=== PATIENT | male | born 1995 | race Caucasian/White ===

== ENCOUNTER 2020-11-14 11:59 | Observation (INO) | payer BC ==
[2020-11-14] MEDS ORDERED: Sodium Chloride 0.9% 1000 ML 1,000 ML IV STA (12:32)
[2020-11-14] MEDS ORDERED: Zofran 4 MG/2 ML VIAL IV ONE (12:32)
[2020-11-14 12:41] LABS: Lactic Acid 2.8 (0.4-2.0); VBG CARBOXYHEMOGLOBIN 2.2 % T HGB (0.0-6.9); VBG HCO3- 11.6 meq/L (22-28); VBG HEMOGLOBIN 16.9; VBG O2 SATURATION 33.5 (95-100)
[2020-11-14 12:42] LABS: VBG pH 7.02 (7.32-7.42)
[2020-11-14] MEDS ORDERED: Zofran 4 MG/2 ML VIAL ONE ×2 (12:46→12:53)
[2020-11-14] MEDS ORDERED: Sodium Chloride 0.9% 1000 ML 1,000 ML ONE ×4 (12:46→19:31)
[2020-11-14 12:59] LABS: Hematocrit 46.8 % (42-50); Hemoglobin 16.4 gm/dl (12.5-18.0); Mean Cell Volume 86.5 fl (78-100); Mean Corpuscular Hemoglobin 30.3 pg (26-32); Mean Platelet Volume 9.2 fl (7.5-11.0); Platelet Count 373 K/mm3 (150-450); Red Blood Count 5.41 M/mm3 (4.1-5.6); Red Cell Distribution Width 12.5 % (11.5-14.0); White Blood Count 19.2 K/mm3 (4.0-10.5)
[2020-11-14 13:09] LABS: ALBUMIN 5.8 g/dL (3.5-5.0); ALKALINE PHOSPHATASE 122 U/L (38-126); ANION GAP 36.8 MEQ/L (5-15); BLOOD UREA NITROGEN 18 mg/dL (9-20); CHLORIDE 101 mmol/L (98-107); Calcium 10.2 mg/dL (8.4-10.2); Creatinine 1 1.04 mg/dL (0.66-1.25); EST GLOMERULAR FILTRATION RATE > 60.0 ML/MIN; Glucose 333 mg/dL (74-106); MAGNESIUM 2.5 mg/dL (1.6-2.3); Potassium 5.8 mmol/L (3.5-5.1); SGOT/AST 31 U/L (17-59); SGPT/ALT 26 U/L (0-50); SODIUM 141 mmol/L (137-145); Total Protein 9.5 g/dL (6.3-8.2)
[2020-11-14 13:16] LABS: Carbon Dioxide 9 mmol/L (22-30)
[2020-11-14] MEDS: HUMULIN R 100 UNIT in Sodium Chloride 0.9% 100 ML IVPB 100 ML IV SCH (13:21)
[2020-11-14 13:24] LABS: Appearance CLEAR (CLEAR); Bilirubin NEGATIVE (NEGATIVE); Blood MODERATE Ery/ul (0-5); Glucose >=500 mg/dL (NEGATIVE); Ketones MODERATE (NEGATIVE); Leukocyte Esterase NEGATIVE (NEGATIVE); Mucus SLIGHT /HPF (NEGATIVE); Nitrite NEGATIVE (NEGATIVE); Protein,Urine Dip 100 (Negative); Specific Gravity 1.022 (1.005-1.025); Urobilinogen NEGATIVE mg/dL (0-1)
--- NOTE | 2020-11-14 13:35 | XRAY ---
Indication: Vomiting. Diabetic ketoacidosis. Comparison: None 2 view abdomen nonacute and nonobstructed. Solid organs and osseous structures unremarkable. Single PA chest demonstrates normal heart, lungs, and bony thorax. Impression: Negative abdomen. Normal 1 view chest.
--- NOTE | 2020-11-14 13:52 | ERPHSYRPT ---
- History of Present Illness Time Seen by Provider: 11/14/20 12:05 Historian: patient Exam Limitations: no limitations Patient Subjective Stated Complaint: PT states "I am a type 1 diabetic and I have not been able to keep anything down for the past couple of days. I feel horrible." Triage Nursing Assessment: PT presented alert and oriented X 3, skin pwd. pt ambulates with a slow shuffling gait. PT able to speak in clear full sentences pt in no apparent respiratory distress. Physician History: 25 years old type I diabetic on insulin pump presented in the ER with sudden onset nausea and vomiting last night with multiple episodes of nonprojectile, nonbilious vomiting with no hematemesis. Patient report mild dull aching pain generalized abdomen which is more with vomiting and better in between. He does not have any abdominal pain at present. Denies any fever or chills cough or shortness of breath. Blood sugar on presentation is 300s. Patient feels weak fatigued tired and dehydrated with no energy. Timing/Duration: yesterday, sudden, worse Quality: aching Abdominal Pain Onset Location: generalized abdomen Pain Radiation: no radiation Severity of Pain-Max: mild Severity of Pain-Current: none Modifying Factors: Worsens With: vomiting Associated Symptoms: nausea, vomiting Allergies/Adverse Reactions: corn Allergy (Severe, Verified 11/14/20 15:51) swelling in throat Penicillins Allergy (Severe, Verified 11/14/20 15:51) Swelling Home Medications: Insulin Lispro [Humalog] 100 unit SQ DAILY 11/14/20 [History] PARoxetine HCL [Paroxetine HCl] 5 mg PO DAILY 11/14/20 [History] Hx Tetanus, Diphtheria Vaccination/Date Given: No Hx Influenza Vaccination/Date Given: No Hx Pneumococcal Vaccination/Date Given: No Immunizations Up to Date: Yes Travel Risk - International Travel Have you traveled outside of the country in past 3 weeks: No - Coronavirus Screening Are you exhibiting any of the following symptoms?: No Close contact with a COVID-19 positive Pt in past 14-21 Days: No - Vaccine Status Have you recieved a Covid-19 vaccination: No - Review of Systems Constitutional: Fatigue, Weakness Eyes: No Symptoms Ears, Nose, & Throat: No Symptoms Respiratory: No Symptoms Cardiac: No Symptoms Abdominal/Gastrointestinal: Abdominal Pain, Nausea, Vomiting, No Diarrhea Genitourinary Symptoms: No Symptoms Musculoskeletal: No Symptoms Skin: No Symptoms Neurological: No Symptoms Psychological: No Symptoms Endocrine: No Symptoms Hematologic/Lymphatic: No Symptoms Immunological/Allergic: No Symptoms - Past Medical History Pertinent Past Medical History: Yes Neurological History: No Pertinent History ENT History: No Pertinent History Cardiac History: No Pertinent History Respiratory History: No Pertinent History Endocrine Medical History: Diabetes Type I Musculoskeletal History: No Pertinent History GI Medical History: GERD History: No Pertinent History Psycho-Social History: Anxiety Male Reproductive Disorders: No Pertinent History - Past Surgical History Past Surgical History: No - Social History Smoking Status: Never smoker How long have you smoked: years Exposure to second hand smoke: No Drug Use: none Patient Lives Alone: No - Nursing Vital Signs Nursing Vital Signs: Initial Vital Signs Temperature 98.7 F 11/14/20 12:07 Pulse Rate 101 H 11/14/20 12:07 Respiratory Rate 24 11/14/20 12:07 Blood Pressure 143/107 11/14/20 12:07 O2 Sat by Pulse Oximetry 100 11/14/20 12:07 Pain Scale Pain Intensity 0 - Physical Exam General Appearance: no apparent distress, alert Eye Exam: PERRL/EOMI, eyes nml inspection Ears, Nose, Throat Exam: normal ENT inspection, TMs normal, pharynx normal Neck Exam: normal inspection, non-tender, supple, full range of motion Respiratory Exam: normal breath sounds, lungs clear Cardiovascular Exam: regular rate/rhythm, normal heart sounds Gastrointestinal/Abdomen Exam: soft, normal bowel sounds, No tenderness Back Exam: normal inspection, normal range of motion, No CVA tenderness Extremity Exam: normal inspection, normal range of motion, pelvis stable Neurologic Exam: alert, oriented x 3, 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, 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 tested, normal mood/affect, nml station & gait, sensation nml, No motor deficits Skin Exam: normal color, warm SpO2 Interpretation: normal SpO2: 98 O2 Delivery: Room Air - Course EKG Interpreted by Me: RATE (99), Sinus Rhythm, Right Neville Deviation, NORMAL INTERVALS, NORMAL QRS Ordered Tests: Active Orders 24 hr Category Date Time Status Bedrest ROUTINE Activity 11/14/20 15:30 Active Up With Assistance ROUTINE Activity 11/14/20 15:30 Active Code Status Order ROUTINE Care 11/14/20 15:30 Active EKG-ER Only STAT Care 11/14/20 12:50 Completed Fall Protocol Q1H Care 11/14/20 15:30 Active IV Care Q1H Care 11/14/20 15:30 Active IV Insertion STAT Care 11/14/20 12:32 Completed Neuro Checks Q2H Care 11/14/20 15:[address] in Observation ROUTINE Care 11/14/20 15:30 Active Abhinav Austin, Apply ROUTINE Care 11/14/20 15:30 Completed Weight,Daily 0600 Care 11/14/20 15:30 Active OBSTR/ACUTE ABDOMEN SERIES Stat Exams 11/14/20 13:04 Completed AMYLASE Stat Lab 11/14/20 14:06 Completed CBC W DIFF AM.LAB Lab 11/15/20 04:00 Ordered CBC W DIFF Stat Lab 11/14/20 12:50 Completed CMP AM.LAB Lab 11/15/20 04:00 Ordered CMP Stat Lab 11/14/20 12:50 Completed LIPASE Stat Lab 11/14/20 14:06 Completed Lactic Acid Stat Lab 11/14/20 14:43 Completed Lactic Acid Urgent Lab 11/14/20 12:32 Completed MAGNESIUM Stat Lab 11/14/20 12:50 Completed Manual Differential NC Stat Lab 11/14/20 12:50 Completed POCT GLUCOSE Stat Lab 11/14/20 12:10 Completed POCT GLUCOSE Stat Lab 11/14/20 14:50 Completed UA W/RFX UR CULTURE Stat Lab 11/14/20 12:47 Completed VENOUS BLOOD GAS Urgent Lab 11/14/20 12:32 Completed Transfer Order Routine Transfer 11/14/20 Completed Medication Summary Generic Name Dose Route Start Last Admin Trade Name Freq PRN Reason Stop Dose Admin Insulin Human Regular 100 unit 100 mls @ 6 mls/hr 11/14/20 13:15 11/14/20 18:57 / Sodium Chloride IV 12/14/20 13:14 8 ml/hr .[id number] JENN 8 mls/hr Infusion Dextrose/Sodium Chloride 1,000 mls @ 150 mls/hr 11/14/20 17:15 11/14/20 17:26 Dextrose 5% -0.45 Nacl 1000 Ml IV 12/14/20 17:14 150 mls/hr .[id number] JENN Administration Sodium Chloride 1,000 mls @ 250 mls/hr 11/14/20 19:45 11/14/20 20:11 Sodium Chloride 0.9% 1000 Ml IV 12/14/20 19:44 250 mls/hr .Q4H JENN Administration Pantoprazole Sodium 40 mg 11/14/20 16:00 11/14/20 18:11 Protonix 40 Mg Iv IV 12/14/20 15:59 40 mg Q24H10 JENN Administration Discontinued Medications Generic Name Dose Route Start Last Admin Trade Name José Luisq PRN Reason Stop Dose Admin Sodium Chloride 1,000 mls @ 999 mls/hr 11/14/20 12:32 11/14/20 13:57 Sodium Chloride 0.9% 1000 Ml IV 11/14/20 13:32 Infused .Q1H1M STA Infusion Sodium Chloride Confirm 11/14/20 12:46 Sodium Chloride 0.9% 1000 Ml Administered 11/14/20 12:47 Dose 1,000 mls @ ud .ROUTE .STK-MED ONE Sodium Chloride Confirm 11/14/20 13:34 Sodium Chloride 0.9% 1000 Ml Administered 11/14/20 13:35 Dose 1,000 mls @ ud .ROUTE .STK-MED ONE Sodium Chloride Confirm 11/14/20 14:51 Sodium Chloride 0.9% 1000 Ml Administered 11/14/20 14:52 Dose 1,000 mls @ ud .ROUTE .STK-MED ONE Sodium Chloride 1,000 mls @ 250 mls/hr 11/14/20 15:45 Sodium Chloride 0.9% 1000 Ml IV 12/14/20 15:44 .Q4H JENN Dextrose/Sodium Chloride Confirm 11/14/20 17:18 Dextrose 5% -0.45 Nacl 1000 Ml Administered 11/14/20 17:19 Dose 1,000 mls @ ud IV .STK-MED ONE Sodium Chloride Confirm 11/14/20 19:31 Sodium Chloride 0.9% 1000 Ml Administered 11/14/20 19:32 Dose 1,000 mls @ ud .ROUTE .STK-MED ONE Ondansetron HCl 4 mg 11/14/20 12:32 11/14/20 12:47 Zofran 4 Mg/2 Ml Vial IV 11/14/20 12:33 4 mg STAT ONE Administration Ondansetron HCl Confirm 11/14/20 12:46 Zofran 4 Mg/2 Ml Vial Administered 11/14/20 12:47 Dose 4 mg .ROUTE .STK-MED ONE Ondansetron HCl Confirm 11/14/20 12:53 Zofran 4 Mg/2 Ml Vial Administered 11/14/20 12:54 Dose 4 mg .ROUTE .STK-MED ONE Lab/Rad Data: Laboratory Result Diagrams 11/14/20 12:50 11/14/20 12:50 Laboratory Results 11/14/20 11/14/20 11/14/20 Range/Units 14:50 14:43 14:06 WBC (4.0-10.5) K/mm3 RBC (4.1-5.6) M/mm3 Hgb (12.5-18.0) gm/dl Hct (42-50) % MCV (78-100) fl MCH (26-32) pg MCHC (32-36) g/dl RDW (11.5-14.0) % Plt Count (150-450) K/mm3 MPV (7.5-11.0) fl Segmented Neutrophils (36.-66.) % Band Neutrophils (0.0-2.0) % Lymphocytes (Manual) (24-44) % Monocytes (Manual) (0.0-12.0) % Platelet Estimate (NORMAL) RBC Morphology pO2/FiO2 Ratio % VBG pH (7.32-7.42) VBG pCO2 at Pat Temp (42-55) mm/Hg VBG pO2 at Pat Temp (25-40) mm/Hg VBG HCO3 (22-28) meq/L VBG O2 Sat (Rod) (95-100) VBG Base Excess (-2.0-2.0) VBG Hemoglobin VBG Carboxyhemoglobin (0.0-6.9) % T HGB POC Potassium (3.5-5.1) Sodium (137-145) mmol/L Potassium (3.5-5.1) mmol/L Chloride (98-107) mmol/L Carbon Dioxide (22-30) mmol/L Anion Gap (5-15) MEQ/L BUN (9-20) mg/dL Creatinine (0.66-1.25) mg/dL Estimated GFR ML/MIN Glucose (74-106) mg/dL POC Glucometer 205 H (74 to 106) mg/dL Lactic Acid 1.6 (0.4-2.0) Calcium (8.4-10.2) mg/dL Magnesium (1.6-2.3) mg/dL Total Bilirubin (0.2-1.3) mg/dL AST (17-59) U/L ALT (0-50) U/L Alkaline Phosphatase (38-126) U/L Serum Total Protein (6.3-8.2) g/dL Albumin (3.5-5.0) g/dL Amylase 65 (30-110) U/L Lipase 143 (23-300) U/L Urine Color (YELLOW) Urine Appearance (CLEAR) Urine pH (5-6) Ur Specific [place] (1.005-1.025) Urine Protein (Negative) Urine Ketones (NEGATIVE) Urine Blood (0-5) Dexter/ul Urine Nitrite (NEGATIVE) Urine Bilirubin (NEGATIVE) Urine Urobilinogen (0-1) mg/dL Ur Leukocyte Esterase (NEGATIVE) Urine WBC (Auto) (0-5) /HPF Urine RBC (Auto) (0-2) /HPF U Epithel Cells (Auto) (FEW) /HPF Urine Bacteria (Auto) (NEGATIVE) /HPF Urine Mucus (Auto) (NEGATIVE) /HPF Urine Culture Reflexed (NO) Urine Glucose (NEGATIVE) mg/dL Influenza Type A Ag (NEGATIVE) Influenza Type B Ag (NEGATIVE) RSV (PCR) (Negative) SARS-CoV-2 (PCR) (NEGATIVE) 11/14/20 11/14/20 11/14/20 Range/Units 13:45 12:50 12:50 WBC 19.2 H (4.0-10.5) K/mm3 RBC 5.41 (4.1-5.6) M/mm3 Hgb 16.4 (12.5-18.0) gm/dl Hct 46.8 (42-50) % MCV 86.5 (78-100) fl MCH 30.3 (26-32) pg MCHC 35.0 (32-36) g/dl RDW 12.5 (11.5-14.0) % Plt Count 373 (150-450) K/mm3 MPV 9.2 (7.5-11.0) fl Segmented Neutrophils 87 H (36.-66.) % Band Neutrophils 2 (0.0-2.0) % Lymphocytes (Manual) 4 L (24-44) % Monocytes (Manual) 7 (0.0-12.0) % Platelet Estimate NORMAL (NORMAL) RBC Morphology NORMAL pO2/FiO2 Ratio % VBG pH (7.32-7.42) VBG pCO2 at Pat Temp (42-55) mm/Hg VBG pO2 at Pat Temp (25-40) mm/Hg VBG HCO3 (22-28) meq/L VBG O2 Sat (Rod) (95-100) VBG Base Excess (-2.0-2.0) VBG Hemoglobin VBG Carboxyhemoglobin (0.0-6.9) % T HGB POC Potassium (3.5-5.1) Sodium 141 (137-145) mmol/L Potassium 5.8 H (3.5-5.1) mmol/L Chloride 101 (98-107) mmol/L Carbon Dioxide 9 L* (22-30) mmol/L Anion Gap 36.8 H (5-15) MEQ/L BUN 18 (9-20) mg/dL Creatinine 1.04 (0.66-1.25) mg/dL Estimated GFR > 60.0 ML/MIN Glucose 333 H (74-106) mg/dL POC Glucometer (74 to 106) mg/dL Lactic Acid (0.4-2.0) Calcium 10.2 (8.4-10.2) mg/dL Magnesium 2.5 H (1.6-2.3) mg/dL Total Bilirubin 0.50 (0.2-1.3) mg/dL AST 31 (17-59) U/L ALT 26 (0-50) U/L Alkaline Phosphatase 122 (38-126) U/L Serum Total Protein 9.5 H (6.3-8.2) g/dL Albumin 5.8 H (3.5-5.0) g/dL Amylase (30-110) U/L Lipase (23-300) U/L Urine Color (YELLOW) Urine Appearance (CLEAR) Urine pH (5-6) Ur Specific [place] (1.005-1.025) Urine Protein (Negative) Urine Ketones (NEGATIVE) Urine Blood (0-5) Dexter/ul Urine Nitrite (NEGATIVE) Urine Bilirubin (NEGATIVE) Urine Urobilinogen (0-1) mg/dL Ur Leukocyte Esterase (NEGATIVE) Urine WBC (Auto) (0-5) /HPF Urine RBC (Auto) (0-2) /HPF U Epithel Cells (Auto) (FEW) /HPF Urine Bacteria (Auto) (NEGATIVE) /HPF Urine Mucus (Auto) (NEGATIVE) /HPF Urine Culture Reflexed (NO) Urine Glucose (NEGATIVE) mg/dL Influenza Type A Ag NEGATIVE (NEGATIVE) Influenza Type B Ag NEGATIVE (NEGATIVE) RSV (PCR) NEGATIVE (Negative) SARS-CoV-2 (PCR) NEGATIVE (NEGATIVE) 11/14/20 11/14/20 11/14/20 Range/Units 12:47 12:32 12:10 WBC (4.0-10.5) K/mm3 RBC (4.1-5.6) M/mm3 Hgb (12.5-18.0) gm/dl Hct (42-50) % MCV (78-100) fl MCH (26-32) pg MCHC (32-36) g/dl RDW (11.5-14.0) % Plt Count (150-450) K/mm3 MPV (7.5-11.0) fl Segmented Neutrophils (36.-66.) % Band Neutrophils (0.0-2.0) % Lymphocytes (Manual) (24-44) % Monocytes (Manual) (0.0-12.0) % Platelet Estimate (NORMAL) RBC Morphology pO2/FiO2 Ratio 21.0 % VBG pH 7.02 L* (7.32-7.42) VBG pCO2 at Pat Temp 45 (42-55) mm/Hg VBG pO2 at Pat Temp 21 L (25-40) mm/Hg VBG HCO3 11.6 L* (22-28) meq/L VBG O2 Sat (Rod) 33.5 L (95-100) VBG Base Excess -19.0 L (-2.0-2.0) VBG Hemoglobin 16.9 VBG Carboxyhemoglobin 2.2 (0.0-6.9) % T HGB POC Potassium 6.0 H* (3.5-5.1) Sodium (137-145) mmol/L Potassium (3.5-5.1) mmol/L Chloride (98-107) mmol/L Carbon Dioxide (22-30) mmol/L Anion Gap (5-15) MEQ/L BUN (9-20) mg/dL Creatinine (0.66-1.25) mg/dL Estimated GFR ML/MIN Glucose (74-106) mg/dL POC Glucometer 319 H (74 to 106) mg/dL Lactic Acid 2.8 H (0.4-2.0) Calcium (8.4-10.2) mg/dL Magnesium (1.6-2.3) mg/dL Total Bilirubin (0.2-1.3) mg/dL AST (17-59) U/L ALT (0-50) U/L Alkaline Phosphatase (38-126) U/L Serum Total Protein (6.3-8.2) g/dL Albumin (3.5-5.0) g/dL Amylase (30-110) U/L Lipase (23-300) U/L Urine Color STRAW (YELLOW) Urine Appearance CLEAR (CLEAR) Urine pH 5.0 (5-6) Ur Specific [place] 1.022 (1.005-1.025) Urine Protein 100 (Negative) Urine Ketones MODERATE (NEGATIVE) Urine Blood MODERATE (0-5) Dexter/ul Urine Nitrite NEGATIVE (NEGATIVE) Urine Bilirubin NEGATIVE (NEGATIVE) Urine Urobilinogen NEGATIVE (0-1) mg/dL Ur Leukocyte Esterase NEGATIVE (NEGATIVE) Urine WBC (Auto) NONE (0-5) /HPF Urine RBC (Auto) NONE (0-2) /HPF U Epithel Cells (Auto) NONE (FEW) /HPF Urine Bacteria (Auto) NONE (NEGATIVE) /HPF Urine Mucus (Auto) SLIGHT (NEGATIVE) /HPF Urine Culture Reflexed NO (NO) Urine Glucose >=500 (NEGATIVE) mg/dL Influenza Type A Ag (NEGATIVE) Influenza Type B Ag (NEGATIVE) RSV (PCR) (Negative) SARS-CoV-2 (PCR) (NEGATIVE) - Progress Progress: improved, re-examined Progress Note: 11/14/20 13:59 He is given fluid boluses with Zofran, on reevaluation his nausea is better and no episode of vomiting while in the ER. Patient white count is 19, lactate of 2.8 and pH 7.02 with a bicarb 9 and gap around 36. Patient is in DKA and has a potassium of 5.8 with no acute EKG changes. Started on insulin drip. I have obtained acute abdomen series which is negative. Patient is not in any distress. Discussed with Dr. Escalante and patient is being admitted to ICU and will continue with DKA protocol as per Dr. Escalante recommendations. - Departure Departure Disposition: Observation Clinical Impression: DKA (diabetic ketoacidoses) Qualifiers: Diabetes mellitus type: type 1 Diabetes mellitus complication detail: without coma Qualified Code(s): E10.10 - Type 1 diabetes mellitus with ketoacidosis without coma Condition: Stable Critical Care Time: Yes Critical Care Time(excluding separately billable procedures): Critical 30-74 mins
[2020-11-14 14:46] LABS: AMYLASE 65 U/L (30-110); LIPASE 143 U/L (23-300)
[2020-11-14 14:56] LABS: INFLUENZA A NEGATIVE (NEGATIVE); INFLUENZA B NEGATIVE (NEGATIVE); RESPIRATORY SYNCTIAL VIRUS NEGATIVE (Negative)
[2020-11-14 15:28] LABS: BAND 2 % (0.0-2.0); Lymphocytes 4 % (24-44); Monocyte 7 % (0.0-12.0); Neutrophils 87 % (36.-66.); Total Cells Counted 100
[2020-11-14 15:29] LABS: Platelet Estimate NORMAL (NORMAL)
[2020-11-14] MEDS ORDERED: FLUZONE QUAD 2020-2021 SYRINGE IM ONE (15:39)
[2020-11-14] MEDS ORDERED: Sodium Chloride 0.9% 1000 ML 1,000 ML IV SCH (15:45)
[2020-11-14 16:22] LABS: A-aADO2 4; ABG HEMOGLOBIN 13.9; ABG POTASSIUM 4.4 (3.5-5.1); ARTERIAL BLD GAS O2 SATURATION 99.3 % (95-100); ARTERIAL BLOOD GAS BASE EXCESS -15.8 (-2.0-2.0); ARTERIAL BLOOD GAS FIO2 21 %; ARTERIAL BLOOD GAS PCO2 25 mmHg (35-45); ARTERIAL BLOOD GAS PO2 114 mmHg (75-100); HCO3- 10.2 (22-28); HGB O2 SAT 97.1 g/dF (94-100); Methhemoglobin 1.2 % (1.4-1.5)
[2020-11-14 16:23] LABS: ARTERIAL BLOOD GAS pH 7.22 (7.35-7.45)
[2020-11-14 16:28] LABS: ABG SITE LEFT RADIAL; ALLEN TEST OK? YES
[2020-11-14 17:15] LABS: ANION GAP 20.3 MEQ/L (5-15); BLOOD UREA NITROGEN 15 mg/dL (9-20); CHLORIDE 113 mmol/L (98-107); Calcium 8.2 mg/dL (8.4-10.2); Creatinine 1 0.72 mg/dL (0.66-1.25); EST GLOMERULAR FILTRATION RATE > 60.0 ML/MIN; Glucose 133 mg/dL (74-106); Potassium 4.6 mmol/L (3.5-5.1); SODIUM 140 mmol/L (137-145)
[2020-11-14] MEDS ORDERED: Dextrose 5% -0.45 NaCl 1000 ML 1,000 ML IV ONE (17:18)
[2020-11-14 17:21] LABS: Carbon Dioxide 12 mmol/L (22-30)
[2020-11-14] MEDS: Dextrose 5% -0.45 NaCl 1000 ML 1,000 ML IV SCH (17:26)
[2020-11-14] MEDS: PROTONIX 40 MG IV IV SCH (18:11)
[2020-11-14] MEDS: Sodium Chloride 0.9% 1000 ML 1,000 ML IV SCH (20:11)
[2020-11-14 21:11] LABS: ANION GAP 16.6 MEQ/L (5-15); BLOOD UREA NITROGEN 15 mg/dL (9-20); CHLORIDE 110 mmol/L (98-107); Calcium 8.1 mg/dL (8.4-10.2); Creatinine 1 0.68 mg/dL (0.66-1.25); EST GLOMERULAR FILTRATION RATE > 60.0 ML/MIN; Glucose 163 mg/dL (74-106); SODIUM 139 mmol/L (137-145)
[2020-11-14 21:13] LABS: Carbon Dioxide 16 mmol/L (22-30)
[2020-11-15] MEDS: Dextrose 5% -0.45 NaCl 1000 ML 1,000 ML IV SCH ×4 (00:06→14:21)
[2020-11-15] MEDS: Sodium Chloride 0.9% 1000 ML 1,000 ML IV SCH (00:09)
[2020-11-15] MEDS: HUMULIN R 100 UNIT in Sodium Chloride 0.9% 100 ML IVPB 100 ML IV SCH (00:33)
[2020-11-15 04:42] LABS: Absolute Neutrophil Ct (ANC) 11.32 (1.4-6.9); Basophil (Absolute #) 0 (0-0.4); Eosinophil % 0.1 % (0.00-5.0); Eosinophil (Absolute #) 0.01 (0-0.5); Hematocrit 35.6 % (42-50); Hemoglobin 12.6 gm/dl (12.5-18.0); Lymphocytes % 6.7 % (24.0-44.0); Mean Corpuscular Hemoglobin 30.4 pg (26-32); Mean Corpuscular Hgb Concent. 35.4 g/dl (32-36); Mean Platelet Volume 8.3 fl (7.5-11.0); Monocyte (Absolute #) 1.23 (0.0-1.3); Monocytes % 9.1 % (0.0-12.0); Neutrophil % 84.1 % (36.0-66.0); Platelet Count 249 K/mm3 (150-450); Red Blood Count 4.14 M/mm3 (4.1-5.6); Red Cell Distribution Width 12.6 % (11.5-14.0); White Blood Count 13.5 K/mm3 (4.0-10.5)
[2020-11-15 04:47] LABS: ALBUMIN 3.1 g/dL (3.5-5.0); ALKALINE PHOSPHATASE 64 U/L (38-126); ANION GAP 14.6 MEQ/L (5-15); BLOOD UREA NITROGEN 11 mg/dL (9-20); CHLORIDE 109 mmol/L (98-107); Calcium 7.8 mg/dL (8.4-10.2); Carbon Dioxide 17 mmol/L (22-30); Creatinine 1 0.62 mg/dL (0.66-1.25); EST GLOMERULAR FILTRATION RATE > 60.0 ML/MIN; Glucose 194 mg/dL (74-106); Potassium 4.1 mmol/L (3.5-5.1); SGOT/AST 18 U/L (17-59); SGPT/ALT 13 U/L (0-50); SODIUM 136 mmol/L (137-145); Total Protein 5.4 g/dL (6.3-8.2)
[2020-11-15] MEDS ORDERED: PATIENT OWN MEDICATION SQ SCH (07:45)
[2020-11-15] MEDS: HUMALOG SQ PRN ×5 (08:25→23:55)
[2020-11-15 09:19] LABS: ANION GAP 18.4 MEQ/L (5-15); BLOOD UREA NITROGEN 12 mg/dL (9-20); CHLORIDE 107 mmol/L (98-107); Calcium 8.2 mg/dL (8.4-10.2); Creatinine 1 0.63 mg/dL (0.66-1.25); EST GLOMERULAR FILTRATION RATE > 60.0 ML/MIN; Glucose 356 mg/dL (74-106); Potassium 4.2 mmol/L (3.5-5.1); SODIUM 134 mmol/L (137-145)
[2020-11-15 09:20] LABS: Carbon Dioxide 13 mmol/L (22-30)
[2020-11-15] MEDS: Paxil 20 MG PO SCH (09:23)
[2020-11-15] MEDS: PROTONIX 40 MG IV IV SCH (09:30)
[2020-11-15] MEDS ORDERED: NON-FORMULARY ITEM (Insulin Lispro 100 UNIT) SQ SCH (10:00)
[2020-11-15 12:42] LABS: ANION GAP 15.8 MEQ/L (5-15); BLOOD UREA NITROGEN 12 mg/dL (9-20); CHLORIDE 106 mmol/L (98-107); Calcium 8.2 mg/dL (8.4-10.2); Creatinine 1 0.61 mg/dL (0.66-1.25); EST GLOMERULAR FILTRATION RATE > 60.0 ML/MIN; Glucose 290 mg/dL (74-106); Potassium 3.9 mmol/L (3.5-5.1); SODIUM 134 mmol/L (137-145)
[2020-11-15 12:47] LABS: Carbon Dioxide 17 mmol/L (22-30)
[2020-11-15] MEDS ORDERED: D5W/0.45NS W/ 20mEq KCl 1000 ML 1,000 ML IV SCH (14:01)
[2020-11-15] MEDS ORDERED: Lactated Ringers 1,000 ML IV ONE (15:20)
[2020-11-15] MEDS ORDERED: Dextrose 5% -0.45 NaCl 1000 ML 1,000 ML IV SCH (18:01)
[2020-11-15] MEDS: D5W/0.45NS W/ 20mEq KCl 1000 ML 1,000 ML IV SCH ×2 (19:30→23:34)
[2020-11-16 03:36] LABS: Appearance CLEAR (CLEAR); Bilirubin NEGATIVE (NEGATIVE); Blood SMALL Ery/ul (0-5); Glucose >=500 mg/dL (NEGATIVE); Ketones SMALL (NEGATIVE); Leukocyte Esterase NEGATIVE (NEGATIVE); Nitrite NEGATIVE (NEGATIVE); Protein,Urine Dip NEGATIVE (Negative); Specific Gravity 1.012 (1.005-1.025); Urobilinogen NEGATIVE mg/dL (0-1)
[2020-11-16] MEDS: D5W/0.45NS W/ 20mEq KCl 1000 ML 1,000 ML IV SCH ×3 (03:37→12:16)
[2020-11-16] MEDS: HUMALOG SQ PRN ×2 (04:26→08:14)
[2020-11-16 05:19] LABS: Absolute Neutrophil Ct (ANC) 7.77 (1.4-6.9); BASOPHIL % 0.1 % (0.0-0.4); Basophil (Absolute #) 0.01 (0-0.4); Eosinophil % 0.5 % (0.00-5.0); Eosinophil (Absolute #) 0.05 (0-0.5); Hematocrit 39.4 % (42-50); Hemoglobin 13.7 gm/dl (12.5-18.0); Lymphocyte (Absolute #) 0.87 (1.0-4.6); Lymphocytes % 9.1 % (24.0-44.0); Mean Cell Volume 87.2 fl (78-100); Mean Corpuscular Hemoglobin 30.3 pg (26-32); Mean Corpuscular Hgb Concent. 34.8 g/dl (32-36); Mean Platelet Volume 9.1 fl (7.5-11.0); Monocyte (Absolute #) 0.89 (0.0-1.3); Monocytes % 9.3 % (0.0-12.0); Platelet Count 255 K/mm3 (150-450); Red Blood Count 4.52 M/mm3 (4.1-5.6); Red Cell Distribution Width 12.9 % (11.5-14.0); White Blood Count 9.6 K/mm3 (4.0-10.5)
[2020-11-16 06:09] LABS: ALBUMIN 3.5 g/dL (3.5-5.0); ALKALINE PHOSPHATASE 77 U/L (38-126); ANION GAP 19.9 MEQ/L (5-15); BLOOD UREA NITROGEN 12 mg/dL (9-20); CHLORIDE 99 mmol/L (98-107); Calcium 8.6 mg/dL (8.4-10.2); Carbon Dioxide 19 mmol/L (22-30); Creatinine 1 0.57 mg/dL (0.66-1.25); EST GLOMERULAR FILTRATION RATE > 60.0 ML/MIN; Glucose 391 mg/dL (74-106); Potassium 4.1 mmol/L (3.5-5.1); SGOT/AST 22 U/L (17-59); SGPT/ALT 14 U/L (0-50); SODIUM 133 mmol/L (137-145); Total Protein 5.7 g/dL (6.3-8.2)
[2020-11-16] MEDS ORDERED: Lantus Insulin SQ SCH (08:00)
[2020-11-16] MEDS ORDERED: HUMALOG SQ ONE (09:25)
[2020-11-16] MEDS: Paxil 20 MG PO SCH (09:33)
[2020-11-16] MEDS: PROTONIX 40 MG IV IV SCH (10:33)
[2020-11-16] MEDS ORDERED: HUMALOG SQ SCH (12:00)
[2020-11-16 12:21] VITALS: BP 119/77; PULSE 80; O2SAT 98
== END 2020-11-16 16:48 | disposition home or self-care (01) ==
LOC: ED 11:59 → ICU 15:19
PROVIDERS: ADMIT Family Medicine; ATTEND Family Medicine
DX: E10.10 Type 1 diabetes mellitus with ketoacidosis without coma (principal); R11.2 Nausea with vomiting, unspecified; R10.84 Generalized abdominal pain; Z79.899 Other long term (current) drug therapy
CPT/HCPCS: 0241U; 36000; 36415; 36600; 74022; 80048; 80053; 81001; 82150; 82375; 82803; 82805; 82947; 83036; 83605; 83690; 83735; 85025; 93005; 96360; 96374; 99285; 99291; G0008; 90686; 93268; J1817; J2405; A9270-GY; G0378

== ENCOUNTER 2021-06-30 18:26 | Emergency (ER) | payer BC ==
[2021-06-30] MEDS ORDERED: Sodium Chloride 0.9% 1000 ML 1,000 ML IV STA (19:07)
[2021-06-30] MEDS ORDERED: Zofran 4 MG/2 ML VIAL IV ONE (19:08)
[2021-06-30] MEDS ORDERED: Zofran 4 MG/2 ML VIAL ONE (19:30)
[2021-06-30] MEDS ORDERED: Sodium Chloride 0.9% 1000 ML 1,000 ML ONE (19:30)
[2021-06-30 19:37] LABS: Absolute Neutrophil Ct (ANC) 7.97 (1.4-6.9); Basophil (Absolute #) 0 (0-0.4); Eosinophil % 0.6 % (0.00-5.0); Eosinophil (Absolute #) 0.05 (0-0.5); Hemoglobin 15.5 gm/dl (12.5-18.0); Lymphocyte (Absolute #) 0.32 (1.0-4.6); Lymphocytes % 3.7 % (24.0-44.0); Mean Cell Volume 88.3 fl (78-100); Mean Corpuscular Hemoglobin 29.8 pg (26-32); Mean Corpuscular Hgb Concent. 33.7 g/dl (32-36); Mean Platelet Volume 8.9 fl (7.5-11.0); Monocyte (Absolute #) 0.21 (0.0-1.3); Monocytes % 2.5 % (0.0-12.0); Neutrophil % 93.2 % (36.0-66.0); Platelet Count 222 K/mm3 (150-450); Red Blood Count 5.21 M/mm3 (4.1-5.6); Red Cell Distribution Width 12.7 % (11.5-14.0); White Blood Count 8.6 K/mm3 (4.0-10.5)
[2021-06-30 19:39] LABS: Appearance CLEAR (CLEAR); Bilirubin NEGATIVE (NEGATIVE); Blood NEGATIVE Ery/ul (0-5); Glucose >=500 mg/dL (NEGATIVE); Ketones SMALL (NEGATIVE); Leukocyte Esterase NEGATIVE (NEGATIVE); Mucus SLIGHT /HPF (NEGATIVE); Nitrite NEGATIVE (NEGATIVE); Protein,Urine Dip NEGATIVE (Negative); Specific Gravity 1.037 (1.005-1.025); Urobilinogen NEGATIVE mg/dL (0-1)
[2021-06-30 19:48] LABS: ALBUMIN 4.7 g/dL (3.5-5.0); ALKALINE PHOSPHATASE 66 U/L (38-126); ANION GAP 14.8 MEQ/L (5-15); BLOOD UREA NITROGEN 15 mg/dL (9-20); Bacteria NONE SEEN /HPF (NEGATIVE); CHLORIDE 101 mmol/L (98-107); Calcium 9.4 mg/dL (8.4-10.2); Carbon Dioxide 26 mmol/L (22-30); EST GLOMERULAR FILTRATION RATE > 60.0 ML/MIN; Glucose 205 mg/dL (74-106); MAGNESIUM 1.7 mg/dL (1.6-2.3); Potassium 4.4 mmol/L (3.5-5.1); RBC NONE SEEN /HPF (0-2); SGOT/AST 23 U/L (17-59); SGPT/ALT 13 U/L (0-50); SODIUM 138 mmol/L (137-145); Total Protein 7.2 g/dL (6.3-8.2)
--- NOTE | 2021-06-30 20:52 | ERPHSYRPT ---
- History of Present Illness Time Seen by Provider: 06/30/21 19:06 Source: patient Exam Limitations: no limitations Patient Subjective Stated Complaint: Pt c/o of heart palpatations, fatigue, headache, nausea, indegestion, diarrhea all starting today Triage Nursing Assessment: Pt drove [place] to the ER, vitals wnl, rates pain in his chronic back as 2/10 but when he has palpatations it is 6/10, states that he has had 2 diarrhea stools today, denies vomiting, had covid in April, doesn't appear to be in any distress Physician History: 25 years old healthy male presented to the ER with chief complaint of multiple symptoms of viral syndrome with headache, cough congestion, nausea, diarrhea 2 episodes loose since morning with minimal abdominal discomfort at times. Subjective feeling of fever and chills. Occasionally patient feels having palpitations/rapid heart rate breaths last for few seconds and improves. No difficulty breathing otherwise. No chest pain. Denies any sick contact. Not vaccinated against COVID-19. Timing/Duration: day(s) (2), gradual onset, worse Severity: moderate Modifying Factors: Improves With: nothing Associated Symptoms: nausea, cough, fever, malaise, weakness Allergies/Adverse Reactions: corn Allergy (Severe, Verified 11/14/20 15:51) swelling in throat Penicillins Allergy (Severe, Verified 11/14/20 15:51) Swelling Home Medications: PARoxetine HCL [Paroxetine HCl] 5 mg PO HS 11/14/20 [History] Hx Tetanus, Diphtheria Vaccination/Date Given: No Hx Influenza Vaccination/Date Given: No Hx Pneumococcal Vaccination/Date Given: No Travel Risk - International Travel Have you traveled outside of the country in past 3 weeks: No - Coronavirus Screening Are you exhibiting any of the following symptoms?: No - Vaccine Status Have you recieved a Covid-19 vaccination: No - Review of Systems Constitutional: Fever, Fatigue, Weakness Eyes: No Symptoms Ears, Nose, & Throat: No Symptoms Respiratory: No Symptoms Cardiac: No Symptoms Abdominal/Gastrointestinal: Nausea Genitourinary Symptoms: No Symptoms Musculoskeletal: Myalgias Neurological: Headache Psychological: No Symptoms Endocrine: No Symptoms Hematologic/Lymphatic: No Symptoms Immunological/Allergic: No Symptoms - Past Medical History Pertinent Past Medical History: Yes Neurological History: No Pertinent History ENT History: No Pertinent History Cardiac History: No Pertinent History Respiratory History: No Pertinent History Endocrine Medical History: Diabetes Type I Musculoskeletal History: No Pertinent History GI Medical History: GERD History: No Pertinent History Psycho-Social History: Anxiety Male Reproductive Disorders: No Pertinent History - Past Surgical History Past Surgical History: No Neuro Surgical History: No Pertinent History Cardiac: No Pertinent History Respiratory: No Pertinent History Gastrointestinal: No Pertinent History Genitourinary: No Pertinent History Musculoskeletal: No Pertinent History Male Surgical History: No Pertinent History - Social History Smoking Status: Never smoker How long have you smoked: years Exposure to second hand smoke: No Drug Use: none Patient Lives Alone: No - Nursing Vital Signs Nursing Vital Signs: Initial Vital Signs Temperature 99.2 F 06/30/21 18:36 Pulse Rate 87 06/30/21 18:36 Blood Pressure 106/74 06/30/21 18:36 O2 Sat by Pulse Oximetry 100 06/30/21 18:36 Pain Scale Pain Intensity 2 - Physical Exam General Appearance: no apparent distress, alert Eye Exam: PERRL/EOMI, eyes nml inspection Ears, Nose, Throat Exam: TMs normal, pharyngeal erythema Neck Exam: normal inspection, non-tender, supple, full range of motion Respiratory Exam: normal breath sounds, lungs clear Cardiovascular Exam: regular rate/rhythm, normal heart sounds Gastrointestinal/Abdomen Exam: soft, normal bowel sounds, No tenderness Back Exam: normal inspection, normal range of motion Extremity Exam: normal inspection, normal range of motion Neurologic Exam: alert, oriented x 3, cooperative, 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 II-XII nml as tested Skin Exam: normal color SpO2 Interpretation: normal SpO2: 99 O2 Delivery: Room Air Ordered Tests: Active Orders 24 hr Category Date Time Status CHEST 1 VIEW (PORTABLE) Stat Exams 06/30/21 19:09 Taken CBC W DIFF Stat Lab 06/30/21 19:33 Completed CMP Stat Lab 06/30/21 19:33 Completed D-DIMER QUANTITATIVE Stat Lab 06/30/21 19:33 Completed MAGNESIUM Stat Lab 06/30/21 19:33 Completed TROPONIN Q3H Lab 06/30/21 19:33 Completed TROPONIN Q3H Lab 06/30/21 22:15 Ordered TROPONIN Q3H Lab 07/01/21 01:15 Ordered TROPONIN Q3H Lab 07/01/21 04:15 Ordered TROPONIN Q3H Lab 07/01/21 07:15 Ordered UA W/RFX UR CULTURE Stat Lab 06/30/21 19:33 Completed Medication Summary Discontinued Medications Generic Name Dose Route Start Last Admin Trade Name Aleksander PRN Reason Stop Dose Admin Sodium Chloride 1,000 mls @ 999 mls/hr 06/30/21 19:07 06/30/21 20:33 Sodium Chloride 0.9% 1000 Ml IV 06/30/21 20:07 Infused .Q1H1M STA Infusion Sodium Chloride Confirm 06/30/21 19:30 Sodium Chloride 0.9% 1000 Ml Administered 06/30/21 19:31 Dose 1,000 mls @ ud .ROUTE .STK-MED ONE Ondansetron HCl 4 mg 06/30/21 19:08 06/30/21 19:31 Ondansetron Hcl 4 Mg/2 Ml Vial IV 06/30/21 19:09 4 mg STAT ONE Administration Ondansetron HCl Confirm 06/30/21 19:30 Ondansetron Hcl 4 Mg/2 Ml Vial Administered 06/30/21 19:31 Dose 4 mg .ROUTE .STK-MED ONE Lab/Rad Data: Laboratory Result Diagrams 06/30/21 19:33 06/30/21 19:33 Laboratory Results 06/30/21 06/30/21 06/30/21 Range/Units 19:33 19:33 19:33 WBC (4.0-10.5) K/mm3 RBC (4.1-5.6) M/mm3 Hgb (12.5-18.0) gm/dl Hct (42-50) % MCV (78-100) fl MCH (26-32) pg MCHC (32-36) g/dl RDW (11.5-14.0) % Plt Count (150-450) K/mm3 MPV (7.5-11.0) fl Gran % (36.0-66.0) % Eos # (Auto) (0-0.5) Absolute Lymphs (auto) (1.0-4.6) Absolute Monos (auto) (0.0-1.3) Lymphocytes % (24.0-44.0) % Monocytes % (0.0-12.0) % Eosinophils % (0.00-5.0) % Basophils % (0.0-0.4) % Absolute Granulocytes (1.4-6.9) Basophils # (0-0.4) D-Dimer < 215 L (215-500) ng/mL Sodium 138 (137-145) mmol/L Potassium 4.4 (3.5-5.1) mmol/L Chloride 101 (98-107) mmol/L Carbon Dioxide 26 (22-30) mmol/L Anion Gap 14.8 (5-15) MEQ/L BUN 15 (9-20) mg/dL Creatinine 0.70 (0.66-1.25) mg/dL Estimated GFR > 60.0 ML/MIN Glucose 205 H (74-106) mg/dL Calcium 9.4 (8.4-10.2) mg/dL Magnesium 1.7 (1.6-2.3) mg/dL Total Bilirubin 1.20 (0.2-1.3) mg/dL AST 23 (17-59) U/L ALT 13 (0-50) U/L Alkaline Phosphatase 66 (38-126) U/L Troponin I < 0.012 (0.000-0.034) ng/mL Serum Total Protein 7.2 (6.3-8.2) g/dL Albumin 4.7 (3.5-5.0) g/dL Urine Color (YELLOW) Urine Appearance (CLEAR) Urine pH (5-6) Ur Specific [place] (1.005-1.025) Urine Protein (Negative) Urine Ketones (NEGATIVE) Urine Blood (0-5) Dexter/ul Urine Nitrite (NEGATIVE) Urine Bilirubin (NEGATIVE) Urine Urobilinogen (0-1) mg/dL Ur Leukocyte Esterase (NEGATIVE) Urine WBC (Auto) (0-5) /HPF Urine RBC (Auto) (0-2) /HPF U Epithel Cells (Auto) (FEW) /HPF Urine Bacteria (Auto) (NEGATIVE) /HPF Urine Mucus (Auto) (NEGATIVE) /HPF Urine Culture Reflexed (NO) Urine Glucose (NEGATIVE) mg/dL 06/30/21 06/30/21 Range/Units 19:33 19:33 WBC 8.6 (4.0-10.5) K/mm3 RBC 5.21 (4.1-5.6) M/mm3 Hgb 15.5 (12.5-18.0) gm/dl Hct 46.0 (42-50) % MCV 88.3 (78-100) fl MCH 29.8 (26-32) pg MCHC 33.7 (32-36) g/dl RDW 12.7 (11.5-14.0) % Plt Count 222 (150-450) K/mm3 MPV 8.9 (7.5-11.0) fl Gran % 93.2 H (36.0-66.0) % Eos # (Auto) 0.05 (0-0.5) Absolute Lymphs (auto) 0.32 L (1.0-4.6) Absolute Monos (auto) 0.21 (0.0-1.3) Lymphocytes % 3.7 L (24.0-44.0) % Monocytes % 2.5 (0.0-12.0) % Eosinophils % 0.6 (0.00-5.0) % Basophils % 0.0 (0.0-0.4) % Absolute Granulocytes 7.97 H (1.4-6.9) Basophils # 0 (0-0.4) D-Dimer (215-500) ng/mL Sodium (137-145) mmol/L Potassium (3.5-5.1) mmol/L Chloride (98-107) mmol/L Carbon Dioxide (22-30) mmol/L Anion Gap (5-15) MEQ/L BUN (9-20) mg/dL Creatinine (0.66-1.25) mg/dL Estimated GFR ML/MIN Glucose (74-106) mg/dL Calcium (8.4-10.2) mg/dL Magnesium (1.6-2.3) mg/dL Total Bilirubin (0.2-1.3) mg/dL AST (17-59) U/L ALT (0-50) U/L Alkaline Phosphatase (38-126) U/L Troponin I (0.000-0.034) ng/mL Serum Total Protein (6.3-8.2) g/dL Albumin (3.5-5.0) g/dL Urine Color YELLOW (YELLOW) Urine Appearance CLEAR (CLEAR) Urine pH 5.0 (5-6) Ur Specific [place] 1.037 (1.005-1.025) Urine Protein NEGATIVE (Negative) Urine Ketones SMALL (NEGATIVE) Urine Blood NEGATIVE (0-5) Dexter/ul Urine Nitrite NEGATIVE (NEGATIVE) Urine Bilirubin NEGATIVE (NEGATIVE) Urine Urobilinogen NEGATIVE (0-1) mg/dL Ur Leukocyte Esterase NEGATIVE (NEGATIVE) Urine WBC (Auto) NONE (0-5) /HPF Urine RBC (Auto) NONE SEEN (0-2) /HPF U Epithel Cells (Auto) NONE (FEW) /HPF Urine Bacteria (Auto) NONE SEEN (NEGATIVE) /HPF Urine Mucus (Auto) SLIGHT (NEGATIVE) /HPF Urine Culture Reflexed NO (NO) Urine Glucose >=500 (NEGATIVE) mg/dL - Progress Progress: improved Progress Note: 06/30/21 20:51 He is given fluids and Zofran for symptomatic relief. On reevaluation feeling better. EKG showed normal sinus rhythm without any arrhythmia/ischemic changes. Chest x-ray negative for any acute cardiopulmonary findings. Grossly unremarkable work-up otherwise. I believe patient has viral etiology. Recommended supportive care. Outpatient COVID-19 is obtained. Recommended precautions and supportive care. Outpatient follow-up. Discussed signs symptoms of worsening needing return to ER which he seems understanding. Stable for discharge. Counseled pt/family regarding: lab results, diagnosis, need for follow-up, rad results - Departure Departure Disposition: Home Clinical Impression: Viral syndrome, Palpitations Condition: Stable Critical Care Time: No Referrals: DAX SRIVASTAVA [Primary Care Provider] - Follow up/PCP as directed (1-2 days for reevaluation) Instructions: Palpitations (DC), Viral Syndrome (DC) Additional Instructions: Drink plenty of fluids. Take Tylenol/Zofran as needed. Follow-up with your primary care for reevaluation. Return to ER for worsening diarrhea or if develop abdominal pain/persistent high-grade fever chest pain/worsening of palpitations etc. Prescriptions: Ondansetron HCl [Zofran] 4 mg PO TID PRN #7 tablet PRN Reason: Nausea/Vomiting
--- NOTE | 2021-07-01 08:32 | XRAY ---
Indication: Palpitations. Comparison: November 14, 2020. Portable chest remains hyperinflated and clear. Heart not enlarged. Bony thorax intact. No new/acute findings.
== END 2021-06-30 21:11 | disposition home or self-care (01) ==
LOC: ED 18:26
DX: B34.9 Viral infection, unspecified (principal); R00.2 Palpitations; R51.9 Headache, unspecified; R11.0 Nausea; R50.9 Fever, unspecified; R53.81 Other malaise; R53.1 Weakness; R09.81 Nasal congestion; R19.7 Diarrhea, unspecified
CPT/HCPCS: 36415; 71045; 80053; 81001; 83735; 84484; 85025; 85379; 96360; 96374; 99284; J2405

== ENCOUNTER 2022-09-22 13:43 | Emergency (ER) | payer BC, OTHER ==
--- NOTE | 2022-09-22 14:36 | XRAY ---
Indication: Concussion, dizziness, and headache following facial injury. Multiple contiguous axial images obtained through the head without contrast. Comparison: None Normal appearing brain parenchyma, ventricles, or bony calvarium. Visualized paranasal sinuses and mastoid air cells are clear. Impression: Normal CT head without contrast exam.
--- NOTE | 2022-09-22 14:41 | ERPHSYRPT ---
- History of Present Illness Time Seen by Provider: 09/22/22 14:10 Source: patient Exam Limitations: no limitations Patient Subjective Stated Complaint: hit in face with wooden pallet at work at approx 1100 this morning Triage Nursing Assessment: pt to ED c/o injury at work today, reports that a 50 pound wooden pallet swung off elevated surface and struck him in the nose and mouth. no LOC, no broken or loose teeth, no epitaxis reported. pt states this injury happened around 1100 today and he took some typenol at 1230 that somewhat alleviated pain, rates 3/10 now. pt reports he feels slow and sluggish, disoriented occasionally and fatigued. VSS at this time. A&Ox4. Physician History: Patient is a 26-year-old male presents to our ED for evaluation. Patient states he was hit in the face with a 50 pound wooden pallet that swung off of an elevated surface. No loss of consciousness. The pallet struck struck patient in the face. Patient denies facial pain. No lacerations. No loose teeth. No neck pain. Cervical spine cleared clinically. Injury occurred approximately 11 AM. Patient had a slight headache. Patient took Tylenol. Patient states his headache significantly improved. Headache only 3 out of 10. No numbness tingling or weakness. No blurred vision. Patient has a history of diabetes. Patient states his glucose has been within his norm. Significant other at bedside. They voiced no other complaints or concerns at this time. Portions of this note were created with voice recognition technology. There may be grammatical, spelling, punctuation or sound alike errors Timing/Duration: today Severity: moderate Modifying Factors: Improves With: nothing Associated Symptoms: other (Take feeling slow and sluggish) Allergies/Adverse Reactions: Penicillins Allergy (Severe, Verified 09/22/22 13:56) Swelling Home Medications: PARoxetine HCL [Paroxetine HCl] 20 mg PO HS 11/14/20 [History] Blood-Glucose Sensor [Freestyle Tyesha 3 Sensor] 1 each .ROUTE UD 09/22/22 [History] Dextroamphetamine/Amphetamine [Adderall 15 mg Tablet] 15 mg PO DAILY 09/22/22 [History] Hx Tetanus, Diphtheria Vaccination/Date Given: No Hx Influenza Vaccination/Date Given: No Hx Pneumococcal Vaccination/Date Given: No Immunizations Up to Date: No Travel Risk - International Travel Have you traveled outside of the country in past 3 weeks: No - Coronavirus Screening Are you exhibiting any of the following symptoms?: No Close contact with a COVID-19 positive Pt in past 14-21 Days: No - Vaccine Status Have you recieved a Covid-19 vaccination: Yes 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 - Vaccination Dates Date of 2cond Vaccination (if applicable): 2021 - Review of Systems Constitutional: No Symptoms, No Fever, No Chills Eyes: No Symptoms Ears, Nose, & Throat: No Symptoms Respiratory: No Symptoms, No Cough, No Dyspnea Cardiac: No Symptoms, No Chest Pain, No Edema, No Syncope Abdominal/Gastrointestinal: No Symptoms, No Abdominal Pain, No Nausea, No Vomiting, No Diarrhea Genitourinary Symptoms: No Symptoms, No Dysuria Musculoskeletal: No Symptoms, No Back Pain, No Neck Pain Skin: No Symptoms, No Rash Neurological: No Symptoms, No Dizziness, No Focal Weakness, No Sensory Changes Psychological: No Symptoms Endocrine: No Symptoms Hematologic/Lymphatic: No Symptoms Immunological/Allergic: No Symptoms All Other Systems: Reviewed and Negative - Past Medical History Pertinent Past Medical History: Yes Neurological History: No Pertinent History ENT History: No Pertinent History Cardiac History: No Pertinent History Respiratory History: No Pertinent History Endocrine Medical History: Diabetes Type I Musculoskeletal History: No Pertinent History GI Medical History: GERD History: No Pertinent History Psycho-Social History: Anxiety Male Reproductive Disorders: No Pertinent History Other Medical History: ADHD - Past Surgical History Past Surgical History: No Neuro Surgical History: No Pertinent History Cardiac: No Pertinent History Respiratory: No Pertinent History Gastrointestinal: No Pertinent History Genitourinary: No Pertinent History Musculoskeletal: No Pertinent History Male Surgical History: No Pertinent History - Social History Smoking Status: Never smoker How long have you smoked: years Exposure to second hand smoke: No Drug Use: none Patient Lives Alone: No - Nursing Vital Signs Nursing Vital Signs: Initial Vital Signs Temperature 98.1 F 09/22/22 13:59 Pulse Rate 77 09/22/22 13:59 Respiratory Rate 16 09/22/22 13:59 Blood Pressure 135/81 09/22/22 13:59 O2 Sat by Pulse Oximetry 98 09/22/22 13:59 Pain Scale Pain Intensity 3 - Physical Exam General Appearance: no apparent distress, alert Eye Exam: PERRL/EOMI, eyes nml inspection Ears, Nose, Throat Exam: normal ENT inspection, TMs normal, pharynx normal, moist mucous membranes Neck Exam: normal inspection, non-tender, supple, full range of motion Respiratory Exam: normal breath sounds, lungs clear, No respiratory distress Cardiovascular Exam: regular rate/rhythm, normal heart sounds, normal peripheral pulses Gastrointestinal/Abdomen Exam: soft, normal bowel sounds, No tenderness, No mass Back Exam: normal inspection, normal range of motion, No CVA tenderness, No vertebral tenderness Extremity Exam: normal inspection, normal range of motion, pelvis stable Neurologic Exam: alert, oriented x 3, cooperative, normal mood/affect, nml cerebellar function, nml station & gait, sensation nml, No motor deficits Skin Exam: normal color, warm, dry, No rash Lymphatic Exam: No adenopathy SpO2 Interpretation: normal SpO2: 98 O2 Delivery: Room Air - Course Nursing assessment & vital signs reviewed: Yes - CT Exams Head CT Interpretation: Tele-radiologist Report (No acute intracranial findings) Ordered Tests: Active Orders 24 hr Category Date Time Status HEAD WITHOUT CONTRAST [CT] Stat Exams 09/22/22 14:11 Completed - Progress Progress: improved Progress Note: Patient is a 26-year-old male presents to our ED status post facial trauma. Patient reassessed. He is well. Vital stable. CT head negative for acute intracranial pathology. Patient declined pain medication. He had Tylenol at 1230 which significantly improved his headache. Patient's presenting symptoms were acute. Physical exam essentially nonremarkable. Complexity of complaint is mild. No significant comorbidities complicate patient's presentation. Patient will require time off work. We will lawanda patient 3 days recovery. If symptoms continue within 3 days patient to follow-up with his primary care doctor for reevaluation. Patient states he has Thursday off. Patient will return to work next Thursday Level of EM service provided was moderate. Complexity of problem addressed was moderate. Complexity of data reviewed was moderate. Complication/risk morbidity mortality was low. Patient served as independent historian. Time spent during discharge is approximately 10 minutes. Discharge diagnosis concussion. Patient agrees to follow-up with his primary care doctor within 48 hours for evaluation. Portions of this note were created with voice recognition technology. There may be grammatical, spelling, punctuation or sound alike errors 09/22/22 14:58 Counseled pt/family regarding: diagnosis, need for follow-up, rad results - Departure Departure Disposition: Home Clinical Impression: Concussion Condition: Stable Critical Care Time: No Referrals: DAX SRIVASTAVA [Primary Care Provider] - Follow up/PCP as directed Instructions: Concussion, Adult (DC) Additional Instructions: Discharge/Care Plan GREGORIA DEAN was seen on 09/22/22 in the Emergency Room. The patient was counseled regarding Diagnosis,Lab results, Imaging studies, need for follow up and when to return to the Emergency Room. Prescriptions given: Discharge Note I have spoken with the patient and/or caregivers. I have explained the patient's condition, diagnosis and treatment plan based on the information available to me at this time. I have answered the patient's and/or caregiver's questions and addressed any concerns. The patient and/or caregivers have as good understanding of the patient's diagnosis, condition and treatment plan as can be expected at this point. The vital signs have been stable. The patient's condition is stable and appropriate for discharge from the emergency department. The patient will pursue further outpatient evaluation with the primary care physician or other designated or consulting physician as outlined in the discharge instructions. The patient and/or caregivers are agreeable to this plan of care and follow-up instructions have been explained in detail. The patient and/or caregivers have received these instruction. The patient/and or caregivers are aware that any significant change in condition or worsening of symptoms should prompt an immediate return to this or the closest emergency department or call 911.
[2022-09-22 15:10] VITALS: BP 119/65; PULSE 76; O2SAT 96
== END 2022-09-22 15:10 | disposition home or self-care (01) ==
LOC: ED 13:43
DX: S06.0X0A Concussion without loss of consciousness, initial encounter (principal); W20.8XXA Other cause of strike by thrown, projected or falling object, initial encounter; Y99.0 Civilian activity done for income or pay; E10.9 Type 1 diabetes mellitus without complications; Z79.899 Other long term (current) drug therapy
CPT/HCPCS: 70450; 99282

== ENCOUNTER 2025-06-12 10:08 | Emergency (ER) | payer BC ==
[2025-06-12] MEDS ORDERED: HUMULIN R ONE (10:35)
[2025-06-12] MEDS: HUMULIN R SQ ONE (10:37)
[2025-06-12 10:39] LABS: A-aADO2 3; ABG HEMOGLOBIN 15.3; ABG POTASSIUM 4.7 (3.5-5.1); ABG SITE LEFT RADIAL; ALLEN TEST OK? yes; ARTERIAL BLD GAS O2 SATURATION 99.1 % (95-100); ARTERIAL BLOOD GAS BASE EXCESS -2.5 (-2.0-2.0); ARTERIAL BLOOD GAS FIO2 21 %; ARTERIAL BLOOD GAS PCO2 39 mmHg (35-45); ARTERIAL BLOOD GAS PO2 98 mmHg (75-100); ARTERIAL BLOOD GAS TEMPERATURE 37.0 C; HCO3- 22.5 (22-28); HGB O2 SAT 96.6 g/dF (94-100); Methhemoglobin 0.9 % (1.4-1.5); paO2 pAO1 0.97
[2025-06-12 10:54] LABS: BASOPHIL % 0.5 % (0.2-1.2); Basophil (Absolute #) 0.03 x10^3/uL (0.01-0.08); Eosinophil (Absolute #) 0.08 x10^3/uL (0.04-0.54); Hematocrit 42.4 % (40.1-51.0); Hemoglobin 14.9 g/dL (13.7-17.5); IMMATURE GRAN # 0.02 x10^3u/L (0.001-0.031); IMMATURE GRAN % 0.4 % (0.001-0.429); Lymphocyte (Absolute #) 0.99 x10^3/uL (1.32-3.57); Mean Corpuscular Hemoglobin 30.0 pg (25.7-32.2); Mean Corpuscular Hgb Concent. 35.1 g/dL (32.3-36.5); Monocyte (Absolute #) 0.26 x10^3/uL (0.30-0.82); NUCLEATED RBC # 0.00 x10^3u/L (0.00-0.012); NUCLEATED RBC % 0.0 % (0.00-0.2); Platelet Count 308 x10^3/uL (163-337); Red Blood Count 4.97 x10^6/uL (4.63-6.08); White Blood Count 5.6 x10^3/uL (4.23-9.07)
[2025-06-12 10:56] VITALS: TEMP 98
[2025-06-12 11:03] LABS: Calcium 9.3 mg/dL (8.4-10.2); Carbon Dioxide 24.0 mmol/L (22-30); Creatinine 1 0.76 mg/dL (0.66-1.25); EST GLOMERULAR FILTRATION RATE 124.0 ML/MIN; Potassium 4.7 mmol/L (3.5-5.1); SGOT/AST 28.0 U/L (17-59); SGPT/ALT 24.0 U/L (0-50); Total Protein 7.7 g/dL (6.3-8.2)
[2025-06-12 11:09] LABS: Glucose 554.0 mg/dL (74-106)
[2025-06-12 11:41] LABS: Glucose, Urine >=1000 mg/dL (Negative); Protein,Urine Dip Negative (Negative); RBC 0-2 /HPF (0-5); WBC 0-2 /HPF (0-5)
[2025-06-12 12:18] LABS: Calcium 8.7 mg/dL (8.4-10.2); Carbon Dioxide 26.0 mmol/L (22-30); Creatinine 1 0.74 mg/dL (0.66-1.25); EST GLOMERULAR FILTRATION RATE 125.0 ML/MIN; Glucose 354.0 mg/dL (74-106); Potassium 4.5 mmol/L (3.5-5.1)
[2025-06-12 12:37] VITALS: PULSE 70; RESP 12
--- NOTE | 2025-06-12 12:43 | ERPHSYRPT ---
- History of Present Illness Time Seen by Provider: 06/12/25 10:10 Source: patient Exam Limitations: no limitations Patient Subjective Stated Complaint: Pt. states, "I ran out of my long acting insulin. I ordered it 2 weeks ago and it is on back order. I didn't eat dinner last night because I was running low on my short acting insulin!! I feel tired, my mouth is dry. I just don't know what to do." Triage Nursing Assessment: Pt. ambulated to room without difficulty, A&Ox3, Skin P/W/D, REsp. even unlabored, able to move all four extremities. Physician History: Patient comes emergency room because he ran out of his insulin and his insulin is on backorder stated that his blood sugar was reading about 400 and he was feeling tired and thirsty therefore he came to the ER to get evaluated and get treatment. Patient has history of type 1 diabetes Timing/Duration: yesterday Allergies/Adverse Reactions: Penicillins Allergy (Severe, Verified 09/22/22 13:56) Swelling Home Medications: PARoxetine HCL [Paroxetine HCl] 20 mg PO HS 11/14/20 [History] Blood-Glucose Sensor [Freestyle Tyesha 3 Sensor] 1 each .ROUTE UD 09/22/22 [History] Dextroamphetamine/Amphetamine [Adderall 15 mg Tablet] 15 mg PO DAILY 09/22/22 [History] Hx Tetanus, Diphtheria Vaccination/Date Given: No Hx Influenza Vaccination/Date Given: Yes Hx Pneumococcal Vaccination/Date Given: No Travel Risk - International Travel Have you traveled outside of the country in past 3 weeks: No - Emerging Infectious Disease Are you exhibiting symptoms associated with any current EIDs: No - Review of Systems Constitutional: Fatigue Eyes: No Symptoms Ears, Nose, & Throat: No Symptoms Respiratory: No Cough, No Dyspnea Cardiac: No Chest Pain, No Edema, No Syncope Abdominal/Gastrointestinal: No Abdominal Pain, No Nausea, No Vomiting, No Diarrhea Musculoskeletal: No Back Pain, No Neck Pain Skin: No Rash Neurological: No Dizziness, No Focal Weakness, No Sensory Changes Endocrine: Polydipsia - Past Medical History Pertinent Past Medical History: Yes Neurological History: No Pertinent History ENT History: No Pertinent History Cardiac History: High Cholesterol Respiratory History: Asthma Endocrine Medical History: Diabetes Type I Musculoskeletal History: Fractures GI Medical History: GERD History: No Pertinent History Psycho-Social History: Anxiety Male Reproductive Disorders: No Pertinent History Other Medical History: COVID-19 x3, broken toes, ADHD, Anxiety, IBS with constipation, awaiting call back from [facility] regarding RA - Past Surgical History Past Surgical History: Yes Neuro Surgical History: No Pertinent History Cardiac: No Pertinent History Respiratory: No Pertinent History Gastrointestinal: No Pertinent History Genitourinary: No Pertinent History Musculoskeletal: No Pertinent History Male Surgical History: No Pertinent History Other Surgical History: surgery on right pinky x 2 - Social History Smoking Status: Never smoker Exposure to second hand smoke: No Drug Use: none - Social Determinants of Health Will the patient participate in the screening: Declined to provide - Nursing Vital Signs Nursing Vital Signs: Initial Vital Signs Temperature 98.0 F 06/12/25 10:08 Pulse Rate 71 06/12/25 10:08 Respiratory Rate 16 06/12/25 10:08 Blood Pressure 129/68 06/12/25 10:08 O2 Sat by Pulse Oximetry 97 06/12/25 10:08 Pain Scale Pain Intensity 0 - Physical Exam General Appearance: no apparent distress Eye Exam: PERRL/EOMI Ears, Nose, Throat Exam: normal ENT inspection Neck Exam: normal inspection, non-tender, supple, full range of motion Respiratory Exam: normal breath sounds, lungs clear, No respiratory distress Cardiovascular Exam: regular rate/rhythm, normal heart sounds, normal peripheral pulses Gastrointestinal/Abdomen Exam: soft, normal bowel sounds, No tenderness, No mass Neurologic Exam: alert, oriented x 3, cooperative, normal mood/affect, nml cerebellar function, nml station & gait, sensation nml, No motor deficits SpO2 Interpretation: normal SpO2: 96 O2 Delivery: Room Air Ordered Tests: Active Orders 24 hr Category Date Time Status EKG-ER Only STAT Care 06/12/25 10:23 Active ARTERIAL BLOOD GASES Urgent Lab 06/12/25 10:23 Completed BMP Stat Lab 06/12/25 12:05 Completed BMP Stat Lab 06/12/25 13:38 Completed CBC W DIFF Stat Lab 06/12/25 10:35 Completed CMP Stat Lab 06/12/25 10:35 Completed Lactic Acid Stat Lab 06/12/25 10:23 Completed POCT GLUCOSE Stat Lab 06/12/25 10:19 Completed POCT GLUCOSE Stat Lab 06/12/25 11:08 Completed UA W/RFX UR CULTURE Stat Lab 06/12/25 10:23 Completed Medication Summary Discontinued Medications Generic Name Dose Route Start Last Admin Trade Name Aleksander PRN Reason Stop Dose Admin Sodium Chloride 1,000 mls @ 999 mls/hr 06/12/25 10:23 06/12/25 11:59 Sodium Chloride 0.9% 1000 Ml IV 06/12/25 11:23 Infused .Q1H1M STA Infusion Sodium Chloride 1,000 mls @ 999 mls/hr 06/12/25 10:26 06/12/25 12:24 Sodium Chloride 0.9% 1000 Ml IV 06/12/25 11:26 999 mls/hr .Q1H1M STA Administration Sodium Chloride Confirm 06/12/25 10:36 Sodium Chloride 0.9% 1000 Ml Administered 06/12/25 10:37 Dose 1,000 mls @ ud .ROUTE .STK-MED ONE Sodium Chloride Confirm 06/12/25 12:23 Sodium Chloride 0.9% 1000 Ml Administered 06/12/25 12:24 Dose 1,000 mls @ ud .ROUTE .STK-MED ONE Insulin Human Regular 10 unit 06/12/25 10:23 06/12/25 10:37 Insulin Regular, Human 1 Unit SQ 06/12/25 10:24 10 unit STAT ONE Administration Insulin Human Regular Confirm 06/12/25 10:35 Insulin Regular, Human 1 Unit Administered 06/12/25 10:36 Dose 10 unit .ROUTE .STK-MED ONE Lab/Rad Data: Laboratory Result Diagrams 06/12/25 10:35 06/12/25 13:38 Laboratory Results 06/12/25 06/12/25 06/12/25 Range/Units 13:38 12:05 11:08 WBC (4.23-9.07) x10^3/uL RBC (4.63-6.08) x10^6/uL Hgb (13.7-17.5) g/dL Hct (40.1-51.0) % MCV (79.0-92.2) fL MCH (25.7-32.2) pg MCHC (32.3-36.5) g/dL RDW (11.6-14.4) % Plt Count (163-337) x10^3/uL MPV (9.4-12.4) fL Gran % (34.0-67.9) % Immature Gran % (Auto) (0.001-0.429) % Nucleat RBC Rel Count (0.00-0.2) % Eos # (Auto) (0.04-0.54) x10^3/uL Immature Gran # (Auto) (0.001-0.031) x10^3u/L Absolute Lymphs (auto) (1.32-3.57) x10^3/uL Absolute Monos (auto) (0.30-0.82) x10^3/uL Absolute Nucleated RBC (0.00-0.012) x10^3u/L Lymphocytes % (21.8-53.1) % Monocytes % (5.3-12.2) % Eosinophils % (0.8-7.0) % Basophils % (0.2-1.2) % Absolute Granulocytes (1.78-5.38) x10^3/uL Basophils # (0.01-0.08) x10^3/uL Puncture Site pCO2 (35-45) mmHg pO2 (75-100) mmHg Base Excess (-2.0-2.0) O2 Saturation (94-100) g/dF ABG pH (7.35-7.45) ABG HCO3 (22-28) ABG O2 Sat (Measured) (95-100) % Shlomo Test A-a Gradient a/A Ratio Hemoglobin Carboxyhemoglobin (0.0-6.9) % THgb Methemoglobin (1.4-1.5) % Potassium 3.8 4.5 (3.5-5.1) Temperature C POC O2 Flow Rate % Sodium 135 132 L (135-145) mmol/L Chloride 104 98 (98-107) mmol/L Carbon Dioxide 26 26 (22-30) mmol/L Anion Gap 9.5 12.0 (5-15) MEQ/L BUN 20 23 H (9-20) mg/dL Creatinine 0.65 L 0.74 (0.66-1.25) mg/dL Estimated GFR 130.0 125.0 ML/MIN Glucose 224 H 354 H (74-106) mg/dL POC Glucometer 405 H (50 to 500) mg/dL Lactic Acid (0.4-2.0) Calcium 8.4 8.7 (8.4-10.2) mg/dL Total Bilirubin (0.2-1.3) mg/dL AST (17-59) U/L ALT (0-50) U/L Alkaline Phosphatase (38-126) U/L Serum Total Protein (6.3-8.2) g/dL Albumin (3.5-5.0) g/dL Urine Color (Yellow) Urine Appearance (Clear) Urine pH (4.6-8.0) Ur Specific [place] (1.005-1.030) Urine Protein (Negative) Urine Glucose (UA) (Negative) mg/dL Urine Ketones (Negative) Urine Blood (Negative) Urine Nitrite (Negative) Urine Bilirubin (Negative) Urine Urobilinogen (0.2) mg/dL Ur Leukocyte Esterase (Negative) U Hyaline Cast (Auto) (0-2) /LPF Urine Microscopic RBC (0-5) /HPF Urine Microscopic WBC (0-5) /HPF Ur Epithelial Cells (None Seen) /HPF Urine Bacteria (None Seen) /HPF Urine Culture Reflexed (NO) 06/12/25 06/12/25 06/12/25 Range/Units 10:35 10:35 10:23 WBC 5.6 (4.23-9.07) x10^3/uL RBC 4.97 (4.63-6.08) x10^6/uL Hgb 14.9 (13.7-17.5) g/dL Hct 42.4 (40.1-51.0) % MCV 85.3 (79.0-92.2) fL MCH 30.0 (25.7-32.2) pg MCHC 35.1 (32.3-36.5) g/dL RDW 11.7 (11.6-14.4) % Plt Count 308 (163-337) x10^3/uL MPV 8.8 L (9.4-12.4) fL Gran % 75.3 H (34.0-67.9) % Immature Gran % (Auto) 0.4 (0.001-0.429) % Nucleat RBC Rel Count 0.0 (0.00-0.2) % Eos # (Auto) 0.08 (0.04-0.54) x10^3/uL Immature Gran # (Auto) 0.02 (0.001-0.031) x10^3u/L Absolute Lymphs (auto) 0.99 L (1.32-3.57) x10^3/uL Absolute Monos (auto) 0.26 L (0.30-0.82) x10^3/uL Absolute Nucleated RBC 0.00 (0.00-0.012) x10^3u/L Lymphocytes % 17.7 L (21.8-53.1) % Monocytes % 4.7 L (5.3-12.2) % Eosinophils % 1.4 (0.8-7.0) % Basophils % 0.5 (0.2-1.2) % Absolute Granulocytes 4.20 (1.78-5.38) x10^3/uL Basophils # 0.03 (0.01-0.08) x10^3/uL Puncture Site LEFT RADIAL pCO2 39 (35-45) mmHg pO2 98 (75-100) mmHg Base Excess -2.5 L (-2.0-2.0) O2 Saturation 96.6 (94-100) g/dF ABG pH 7.37 (7.35-7.45) ABG HCO3 22.5 (22-28) ABG O2 Sat (Measured) 99.1 (95-100) % Shlomo Test yes A-a Gradient 3 a/A Ratio 0.97 Hemoglobin 15.3 Carboxyhemoglobin 1.6 (0.0-6.9) % THgb Methemoglobin 0.9 L (1.4-1.5) % Potassium 4.7 4.7 (3.5-5.1) Temperature 37.0 C POC O2 Flow Rate 21 % Sodium 127 L (135-145) mmol/L Chloride 92 L (98-107) mmol/L Carbon Dioxide 24 (22-30) mmol/L Anion Gap 16.4 H (5-15) MEQ/L BUN 24 H (9-20) mg/dL Creatinine 0.76 (0.66-1.25) mg/dL Estimated GFR 124.0 ML/MIN Glucose 554 H* (74-106) mg/dL POC Glucometer (50 to 500) mg/dL Lactic Acid (0.4-2.0) Calcium 9.3 (8.4-10.2) mg/dL Total Bilirubin 1.10 (0.2-1.3) mg/dL AST 28 (17-59) U/L ALT 24 (0-50) U/L Alkaline Phosphatase 96 (38-126) U/L Serum Total Protein 7.7 (6.3-8.2) g/dL Albumin 5.0 (3.5-5.0) g/dL Urine Color (Yellow) Urine Appearance (Clear) Urine pH (4.6-8.0) Ur Specific [place] (1.005-1.030) Urine Protein (Negative) Urine Glucose (UA) (Negative) mg/dL Urine Ketones (Negative) Urine Blood (Negative) Urine Nitrite (Negative) Urine Bilirubin (Negative) Urine Urobilinogen (0.2) mg/dL Ur Leukocyte Esterase (Negative) U Hyaline Cast (Auto) (0-2) /LPF Urine Microscopic RBC (0-5) /HPF Urine Microscopic WBC (0-5) /HPF Ur Epithelial Cells (None Seen) /HPF Urine Bacteria (None Seen) /HPF Urine Culture Reflexed (NO) 06/12/25 06/12/25 06/12/25 Range/Units 10:23 10:23 10:19 WBC (4.23-9.07) x10^3/uL RBC (4.63-6.08) x10^6/uL Hgb (13.7-17.5) g/dL Hct (40.1-51.0) % MCV (79.0-92.2) fL MCH (25.7-32.2) pg MCHC (32.3-36.5) g/dL RDW (11.6-14.4) % Plt Count (163-337) x10^3/uL MPV (9.4-12.4) fL Gran % (34.0-67.9) % Immature Gran % (Auto) (0.001-0.429) % Nucleat RBC Rel Count (0.00-0.2) % Eos # (Auto) (0.04-0.54) x10^3/uL Immature Gran # (Auto) (0.001-0.031) x10^3u/L Absolute Lymphs (auto) (1.32-3.57) x10^3/uL Absolute Monos (auto) (0.30-0.82) x10^3/uL Absolute Nucleated RBC (0.00-0.012) x10^3u/L Lymphocytes % (21.8-53.1) % Monocytes % (5.3-12.2) % Eosinophils % (0.8-7.0) % Basophils % (0.2-1.2) % Absolute Granulocytes (1.78-5.38) x10^3/uL Basophils # (0.01-0.08) x10^3/uL Puncture Site pCO2 (35-45) mmHg pO2 (75-100) mmHg Base Excess (-2.0-2.0) O2 Saturation (94-100) g/dF ABG pH (7.35-7.45) ABG HCO3 (22-28) ABG O2 Sat (Measured) (95-100) % Shlomo Test A-a Gradient a/A Ratio Hemoglobin Carboxyhemoglobin (0.0-6.9) % THgb Methemoglobin (1.4-1.5) % Potassium (3.5-5.1) Temperature C POC O2 Flow Rate % Sodium (135-145) mmol/L Chloride (98-107) mmol/L Carbon Dioxide (22-30) mmol/L Anion Gap (5-15) MEQ/L BUN (9-20) mg/dL Creatinine (0.66-1.25) mg/dL Estimated GFR ML/MIN Glucose (74-106) mg/dL POC Glucometer 513 H* (50 to 500) mg/dL Lactic Acid 0.8 (0.4-2.0) Calcium (8.4-10.2) mg/dL Total Bilirubin (0.2-1.3) mg/dL AST (17-59) U/L ALT (0-50) U/L Alkaline Phosphatase (38-126) U/L Serum Total Protein (6.3-8.2) g/dL Albumin (3.5-5.0) g/dL Urine Color Yellow (Yellow) Urine Appearance Clear (Clear) Urine pH 5.0 (4.6-8.0) Ur Specific [place] >=1.030 A (1.005-1.030) Urine Protein Negative (Negative) Urine Glucose (UA) >=1000 A (Negative) mg/dL Urine Ketones 15 A (Negative) Urine Blood Negative (Negative) Urine Nitrite Negative (Negative) Urine Bilirubin Negative (Negative) Urine Urobilinogen 0.2 (0.2) mg/dL Ur Leukocyte Esterase Negative (Negative) U Hyaline Cast (Auto) NONE SEEN (0-2) /LPF Urine Microscopic RBC 0-2 (0-5) /HPF Urine Microscopic WBC 0-2 (0-5) /HPF Ur Epithelial Cells None Seen (None Seen) /HPF Urine Bacteria None Seen (None Seen) /HPF Urine Culture Reflexed NO (NO) - Progress Progress: improved Progress Note: 06/12/25 12:42 Patient is a type I diabetic not on his medication because they ran out and they are on backorder at this time. Patient was given a couple liters of fluids along with 10 units of insulin patient will be treated here as he is not in DKA awaiting pharmacy to get the new prescription for insulin so he can restart his insulin that the patient will need after discharge. 06/12/25 14:16At this time patient's electrolytes are all within normal limits patient is feeling a lot better he has now received confirmation that his insulin is there is blood sugars within acceptable range he is advised to take his insulin that he normally does and to follow-up with primary care provider. - Departure Departure Disposition: Home Clinical Impression: Diabetes type 1, uncontrolled Qualifiers: Glycemic state: with hyperglycemia Qualified Code(s): E10.65 - Type 1 diabetes mellitus with hyperglycemia Condition: Good Critical Care Time: No Referrals: VITO BAUMANN NP [Primary Care Provider, [facility]] - Follow up/PCP as directed
[2025-06-12 13:17] VITALS: BP 90/51
[2025-06-12 13:55] LABS: Calcium 8.4 mg/dL (8.4-10.2); Carbon Dioxide 26.0 mmol/L (22-30); Creatinine 1 0.65 mg/dL (0.66-1.25); EST GLOMERULAR FILTRATION RATE 130.0 ML/MIN; Glucose 224.0 mg/dL (74-106); Potassium 3.8 mmol/L (3.5-5.1)
[2025-06-12 14:17] VITALS: O2SAT 96
== END 2025-06-12 14:36 | disposition home or self-care (01) ==
LOC: ED 10:08
DX: E10.65 Type 1 diabetes mellitus with hyperglycemia (principal); Z79.899 Other long term (current) drug therapy